=== PATIENT | male | born 1970 | race Two or more races ===

== ENCOUNTER → 2023-09-26 | Outpatient (CLI) | payer OTHER | LOC: M PLALAB 15:24 | PROVIDERS: ATTEND Nurse Practitioner Family | DX: N43.3 Hydrocele, unspecified (principal); R93.49 Abnormal radiologic findings on diagnostic imaging of other urinary organs; N50.812 Left testicular pain ==

== ENCOUNTER → 2023-10-06 | Outpatient (CLI) | payer OTHER ==
[~2023-10-06] MED LIST: PROHANCE 279.3MG/ML 15ML VIAL As Ordered ONE; PROHANCE 279.3MG/ML 5ML VIAL As Ordered ONE
== END ==
LOC: M RAD 15:42 → EDUNIT# 16:15
PROVIDERS: ATTEND Nurse Practitioner Family
DX: N50.9 Disorder of male genital organs, unspecified (principal)
CPT/HCPCS: 72197; A9576

== ENCOUNTER → 2023-11-25 | Outpatient (CLI) | payer OTHER ==
[2023-11-25 16:43] LABS: MEAN CORPUSCULAR HGB CONC 33.3 g/dl (32.0-36.5); PLATELET COUNT, AUTOMATED 298 10^3/uL (150-450); RED BLOOD COUNT 4.84 10^6/uL (4.30-6.10); WHITE BLOOD COUNT 6.3 10^3/uL (4.0-10.0)
[2023-11-25 17:21] LABS: BLOOD UREA NITROGEN 12 MG/DL (9-23); CALCIUM LEVEL 9.3 MG/DL (8.5-10.1); CARBON DIOXIDE LEVEL 30 MMOL/L (20-31); CHLORIDE LEVEL 107 MMOL/L (98-107); CREATININE FOR GFR 1.11 MG/DL (0.70-1.30); GLOMERULAR FILTRATION RATE > 60.0 (>56); GLUCOSE, FASTING 83 MG/DL (60-100); POTASSIUM SERUM 4.2 MMOL/L (3.5-5.1); SODIUM LEVEL 142 MMOL/L (136-145)
== END ==
LOC: M WUC 14:46
PROVIDERS: ATTEND Nurse Practitioner Family
DX: Z01.818 Encounter for other preprocedural examination (principal)

== ENCOUNTER 2023-11-30 05:52 | Day surgery (SDC) | payer OTHER ==
[~2023-11-30] VITALS: Ht 177.8 cm; Wt 88.1 kg
[2023-11-30] MEDS: LR 1,000 ML IV SCH (07:09)
[2023-11-30] MEDS ORDERED: LIDOCAINE 2% 100MG/5ML SDV (FOR ANES.) As Ordered ONE (07:11)
[2023-11-30] MEDS ORDERED: propofoL 200 MG/20 ML VIAL As Ordered ONE (07:11)
[2023-11-30] MEDS ORDERED: MIDAZOLAM INJ 2MG/2ML VIAL As Ordered ONE (07:11)
[2023-11-30] MEDS ORDERED: fentaNYL 100 MCG/2 ML INJECTION As Ordered ONE (07:12)
[2023-11-30] MEDS ORDERED: METOCLOPRAMIDE INJ 10MG/2ML VIAL As Ordered ONE (07:33)
[2023-11-30] MEDS: ceFAZolin SOD 2 GM in IV 1 EA IV ONE (08:00)
[2023-11-30] MEDS ORDERED: ONDANSETRON 4MG 2ML VIAL As Ordered ONE (08:22)
[2023-11-30] MEDS ORDERED: KETOROLAC 60MG 2ML VIAL As Ordered ONE (08:24)
[2023-11-30] MEDS: LIDOCAINE 1% SDV 30ML VIAL As Ordered ONE (08:50)
[2023-11-30] MEDS: BACITRACIN OINTMENT 30GM TUBE As Ordered ONE (08:55)
[2023-11-30] MEDS ORDERED: LR 1,000 ML IV SCH (09:05)
[2023-11-30] MEDS ORDERED: ONDANSETRON 4MG 2ML VIAL IV PRN (09:05)
[2023-11-30] MEDS: fentaNYL 100 MCG/2 ML INJECTION IV PRN (09:21)
[2023-11-30] MEDS ORDERED: CEPH500T PO (09:24)
[2023-11-30] MEDS ORDERED: OXYC1TAB23 PO (09:24)
[2023-11-30] MEDS: oxyCODONE 5MG TAB PO PRN (09:31)
[2023-11-30] MEDS: KETOROLAC 30 MG/ML 1ML VIAL IV ONE (09:35)
[2023-11-30] MEDS ORDERED: KETOROLAC 30 MG/ML 1ML VIAL As Ordered ONE (09:36)
[2023-11-30] MEDS ORDERED: MEPERIDINE 25 MG/ML 1ML VIAL As Ordered ONE (09:41)
[2023-11-30] MEDS: MEPERIDINE 25 MG/ML 1ML VIAL IV ONE (09:45)
[2023-11-30] MEDS ORDERED: PERCOCET 5MG/325MG TAB PO PRN (10:00)
[2023-11-30 10:20] VITALS: BP 128/83; TEMP 97.1; O2SAT 97
== END 2023-11-30 10:25 | disposition home or self-care (01) ==
LOC: M SDC 05:52
PROVIDERS: ATTEND Urology
DX: N43.3 Hydrocele, unspecified (principal); N50.3 Cyst of epididymis; K58.9 Irritable bowel syndrome, unspecified; F17.210 Nicotine dependence, cigarettes, uncomplicated
CPT/HCPCS: 54830; 55040; 88302; J0665; J0690; J1100; J1885; J2175; J2250; J2405; J2765; J3010